=== PATIENT | male | born 1960 | race Caucasian/White ===

== ENCOUNTER 2023-11-17 13:58 | Outpatient (RCR) | payer MEDICARE, SELFPAY | END 2023-11-17 23:59 | disposition home or self-care (01) | LOC: RST 13:58 | PROVIDERS: ATTENDING PHYSICIAN Specialist; FAMILY PHYSICIAN Family Medicine | DX: G21.8 Other secondary parkinsonism (principal); R41.841 Cognitive communication deficit; R26.9 Unspecified abnormalities of gait and mobility | CPT/HCPCS: 96125; 97110; 97112; 97116; 97163 ==

== ENCOUNTER 2023-11-30 10:00 | Outpatient (RCR) | payer MEDICARE, SELFPAY | END 2023-12-07 15:57 | disposition home or self-care (01) | LOC: RST 10:00 | PROVIDERS: ATTENDING PHYSICIAN Specialist; FAMILY PHYSICIAN Family Medicine | DX: G21.8 Other secondary parkinsonism (principal); G20.C Parkinsonism, unspecified; R26.9 Unspecified abnormalities of gait and mobility | CPT/HCPCS: 97110; 97112; 97116; 97530 ==

== ENCOUNTER 2024-04-19 09:47 | Outpatient (RCR) | payer MEDICARE, SELFPAY | END 2024-04-19 23:59 | disposition home or self-care (01) | LOC: RPT 09:47 | PROVIDERS: ATTENDING PHYSICIAN Neurological Surgery; FAMILY PHYSICIAN Family Medicine | DX: S32.028G Other fracture of second lumbar vertebra, subsequent encounter for fracture with delayed healing (principal); Z73.6 Limitation of activities due to disability | CPT/HCPCS: 97110; 97112; 97163; 97530 ==

== ENCOUNTER 2024-05-16 11:12 | Outpatient (RCR) | payer MEDICARE, SELFPAY | END 2024-05-16 23:59 | disposition home or self-care (01) | LOC: RPT 11:12 | PROVIDERS: ATTENDING PHYSICIAN Neurological Surgery; FAMILY PHYSICIAN Family Medicine | DX: S32.028G Other fracture of second lumbar vertebra, subsequent encounter for fracture with delayed healing (principal); Z73.6 Limitation of activities due to disability | CPT/HCPCS: 97110; 97112; 97530 ==

== ENCOUNTER 2024-06-20 12:59 | Outpatient (RCR) | payer MEDICARE, SELFPAY | END 2024-06-20 23:59 | disposition home or self-care (01) | LOC: RPT 12:59 | PROVIDERS: ATTENDING PHYSICIAN Neurological Surgery; FAMILY PHYSICIAN Family Medicine | DX: S32.028G Other fracture of second lumbar vertebra, subsequent encounter for fracture with delayed healing (principal); Z73.6 Limitation of activities due to disability | CPT/HCPCS: 97110; 97112; 97530 ==

== ENCOUNTER 2024-07-04 09:59 | Outpatient (RCR) | payer MEDICARE, SELFPAY | END 2024-07-04 23:59 | disposition home or self-care (01) | LOC: RPT 09:59 | PROVIDERS: ATTENDING PHYSICIAN Neurological Surgery; FAMILY PHYSICIAN Family Medicine | DX: S32.028G Other fracture of second lumbar vertebra, subsequent encounter for fracture with delayed healing (principal); Z73.6 Limitation of activities due to disability | CPT/HCPCS: 97110; 97112; 97530 ==

== ENCOUNTER 2024-08-16 10:00 | Outpatient (RCR) | payer MEDICARE, SELFPAY | END 2024-08-20 07:36 | disposition home or self-care (01) | LOC: RPT 10:00 | PROVIDERS: ATTENDING PHYSICIAN Neurological Surgery; FAMILY PHYSICIAN Family Medicine | DX: S32.028G Other fracture of second lumbar vertebra, subsequent encounter for fracture with delayed healing (principal); Z73.6 Limitation of activities due to disability; R26.89 Other abnormalities of gait and mobility; G31.83 Neurocognitive disorder with Lewy bodies; F02.80 Dementia in other diseases classified elsewhere, unspecified severity, without behavioral disturbance, psychotic disturbance, mood disturbance, and anxiety | CPT/HCPCS: 97110; 97112; 97530 ==

== ENCOUNTER 2024-08-20 07:30 | Outpatient (RCR) | payer MEDICARE, SELFPAY | END 2024-08-20 23:59 | disposition home or self-care (01) | LOC: ROT 07:30 | PROVIDERS: ATTENDING PHYSICIAN Family Medicine | DX: G31.83 Neurocognitive disorder with Lewy bodies (principal); Z73.6 Limitation of activities due to disability; F02.80 Dementia in other diseases classified elsewhere, unspecified severity, without behavioral disturbance, psychotic disturbance, mood disturbance, and anxiety | CPT/HCPCS: 97166; 97535 ==

== ENCOUNTER 2024-09-12 10:07 | Outpatient (RCR) | payer MEDICARE, SELFPAY | END 2024-09-12 23:59 | disposition home or self-care (01) | LOC: ROT 10:07 | PROVIDERS: ATTENDING PHYSICIAN Family Medicine | DX: G31.83 Neurocognitive disorder with Lewy bodies (principal); Z73.6 Limitation of activities due to disability; R26.89 Other abnormalities of gait and mobility; M54.50 Low back pain, unspecified; Z91.81 History of falling | CPT/HCPCS: 97110; 97112; 97116; 97163; 97530; 97535 ==

== ENCOUNTER 2024-09-13 06:36 | Outpatient (RCR) | payer SELFPAY | END 2024-09-13 23:59 | disposition home or self-care (01) | LOC: RPT 06:36 | PROVIDERS: ATTENDING PHYSICIAN Family Medicine | DX: G20.A1 Parkinson's disease without dyskinesia, without mention of fluctuations (principal) ==

== ENCOUNTER → 2025-03-04 08:10 | Outpatient (REF) | payer MEDICARE, SELFPAY | LOC: HWRAD 08:10 | PROVIDERS: ATTENDING PHYSICIAN Family Medicine | DX: Z87.891 Personal history of nicotine dependence (principal) | CPT/HCPCS: 76770 ==